=== PATIENT | female | born 1955 | race Caucasian/White ===

== ENCOUNTER → 2016-12-27 | Outpatient (CLI) | payer OTHER ==
[~2016-12-27] MED LIST: IOPAMIDOL (ISOVUE-300) 100 ML BTL ONE
[2016-12-27 18:17] LABS: CREATININE 1.3 mg/dL (0.6-1.0)
== END ==
LOC: FIMAGING 17:25
DX: R10.30 Lower abdominal pain, unspecified (principal)
CPT/HCPCS: Q9967

== ENCOUNTER → 2017-11-29 | Outpatient (CLI) | payer MEDICAID | LOC: FIMAGING 11:00 | PROVIDERS: ATTEND Family Medicine | DX: Z12.31 Encounter for screening mammogram for malignant neoplasm of breast (principal) ==